=== PATIENT | female | born 1980 | race Caucasian/White ===

== ENCOUNTER → 2022-05-01 | Outpatient (CLI) | payer MEDICARE, MEDICAID ==
[~2022-05-01] MED LIST: ACET325T38 PO; ATR20T PO; BIRTH CONTROL PILL; BISM262O27 PO; CIPR-226 PO; FEXO-338 PO; FEXO30OR PO; FLUT16SP22 NSEACH; LOPE-134 PO; MELO15TA39 PO; NAPR-832 PO; NORG1TAB14 PO; OMG1KC PO; SIMV40TA25 PO
--- NOTE | 2022-05-01 17:20 | Diagnostic Imaging Report ---
INDICATION: Routine screening. No prior mammograms are available for comparison. This a baseline study. 2-D and 3-D bilateral screening mammography was performed with CAD. Scattered fibroglandular densities are identified bilaterally. No mass or malignant-appearing microcalcifications are seen. Axillae are unremarkable. IMPRESSION: No mammographic features suspicious for malignancy are identified. ACR BI-RADS Category 1: Negative. Result letter will be mailed to the patient. Note: At least 10% of breast cancer is not imaged by mammography. BI-RADS Category 1 Dictated by: Dictated on workstation # [id number]
== END ==
LOC: RAD 15:16
PROVIDERS: ATTEND Family Medicine
DX: Z12.31 Encounter for screening mammogram for malignant neoplasm of breast (principal)
CPT/HCPCS: 77063; 77067